=== PATIENT | male | born 1980 | race Caucasian/White ===

== ENCOUNTER → 2016-10-08 | Outpatient (CLI) | payer BC ==
[~2016-10-08] MED LIST: KLONOPIN0.5 MG PO; MIRTAZAPINE7.5 MG PO; PROVIGIL200 MG PO; WELLBUTRIN75 MG PO; XANAX0.25 MG PO
== END ==
LOC: BHSO 10:53
DX: F41.1 Generalized anxiety disorder (principal)

== ENCOUNTER → 2016-11-23 | Outpatient (CLI) | payer OTHER | LOC: COL.RAD 11:13 | DX: N50.89 Other specified disorders of the male genital organs (principal) ==

== ENCOUNTER → 2016-12-10 | Outpatient (CLI) | payer OTHER | LOC: BHSO 16:00 | DX: F41.1 Generalized anxiety disorder (principal) ==

== ENCOUNTER 2018-09-15 21:14 | Emergency (ER) | payer OTHER ==
[~2018-09-15] VITALS: Ht 167.6 cm; Wt 77.3 kg
[~2018-09-15 21:14] MED LIST changes: +WELLBUTRIN XL300 M1 PO; -WELLBUTRIN75 MG PO
[2018-09-15 21:24] VITALS: TEMP 97.1
[2018-09-15] MEDS ORDERED: INDERAL 10MG10 MG PO (21:31)
[2018-09-15 22:02] VITALS: BP 121/80; PULSE 95
== END 2018-09-15 22:02 | disposition home or self-care (01) ==
LOC: COL.ER 21:14
DX: T81.30XA Disruption of wound, unspecified, initial encounter (principal); Z98.52 Vasectomy status

== ENCOUNTER 2019-01-04 01:41 | Emergency (ER) | payer OTHER ==
[~2019-01-04] VITALS: Ht 167.6 cm; Wt 75.0 kg
[~2019-01-04 01:41] MED LIST changes: +INDERAL 10MG10 MG PO
[2019-01-04 01:43] VITALS: TEMP 96.9
[2019-01-04] MEDS ORDERED: DESYREL 100MG100 MG PO (01:56)
[2019-01-04 02:11] LABS: BASO % 0.2 % (0.0-2.0); EOS # 0.1 (0.0-0.7); EOS % 1.4 % (0-4.0); GRAN # 5.5 (1.4-6.5); GRAN % 53.4 % (42.2-75.2); HEMATOCRIT 41.6 % (42.0-52.0); HEMOGLOBIN 13.8 g/dl (13.5-18.0); LYMPH # 3.9 (1.2-3.4); LYMPH % 37.8 % (20.0-51.0); MEAN CELL VOLUME 89 fl (80.0-100.0); MEAN CORPUSCULAR HEMOGLOBIN 30 pg (27.0-31.0); MEAN CORPUSCULAR HGB CONC 33 g/dl (33.0-37.0); MEAN PLATELET VOLUME 9.3 fl (7.4-10.4); MONO # 0.7 (0.1-0.6); PLATELET COUNT 258 K/mm3 (130-400); RED BLOOD COUNT 4.67 M/mm3 (4.20-5.60); REDCELL DISTRIBUTION WIDTH-CV 12.4 % (11.5-14.5)
[2019-01-04 02:20] LABS: ALANINE AMINOTRANSFERASE 17 U/L (21-72); ALBUMIN 4.6 gm/dL (3.5-5.0); ALKALINE PHOSPHATASE 76 U/L (50-136); ANION GAP 9 mmol/L (7-16); AST,SGOT 23 U/L (15-37); BILIRUBIN,TOTAL 0.3 mg/dL (0.0-1.0); BLOOD UREA NITROGEN 25 mg/dL (9-20); CALCIUM 9.6 mg/dL (8.4-10.2); CARBON DIOXIDE 26 mmol/L (22-30); CHLORIDE 102 mmol/L (98-107); CREATINE KINASE 84 U/L (55-170); CREATININE, serum 1.34 (0.66-1.25); GLUCOSE 115 mg/dL (74-106); POTASSIUM 4.3 mmol/L (3.4-5.0); SODIUM 138 mmol/L (137-145); TOTAL PROTEIN 7.6 gm/dL (6.4-8.2)
[2019-01-04 02:33] LABS: TROPONIN-I < 0.012 ng/mL (0.000-0.035)
[2019-01-04 02:37] LABS: PROLACTIN 52.9 ng/mL (3.7-17.9)
[2019-01-04 04:17] VITALS: BP 120/86; PULSE 63
== END 2019-01-04 04:17 | disposition home or self-care (01) ==
LOC: COL.ER 01:41
PROVIDERS: Emergency Medicine
DX: I95.9 Hypotension, unspecified (principal); R55 Syncope and collapse; F32.9 Major depressive disorder, single episode, unspecified; F41.9 Anxiety disorder, unspecified; Z90.89 Acquired absence of other organs
CPT/HCPCS: J7030

== ENCOUNTER 2021-03-19 18:14 | Emergency (ER) | payer OTHER ==
[~2021-03-19] VITALS: Ht 167.6 cm; Wt 70.5 kg
[~2021-03-19 18:14] MED LIST changes: +DESYREL 100MG100 MG PO
[2021-03-19 18:23] VITALS: TEMP 97.5
[2021-03-19 21:13] VITALS: BP 114/76; PULSE 79
== END 2021-03-19 21:13 | disposition home or self-care (01) ==
LOC: COL.ER 18:14
DX: S52.502A Unspecified fracture of the lower end of left radius, initial encounter for closed fracture (principal); F41.9 Anxiety disorder, unspecified; Z79.899 Other long term (current) drug therapy; W00.0XXA Fall on same level due to ice and snow, initial encounter